=== PATIENT | female | born 1985 | race Caucasian/White ===

== ENCOUNTER 2022-03-23 15:46 | Outpatient (NON) | payer OTHER, SELFPAY | END 2022-03-23 15:47 | disposition home or self-care (01) | PROVIDERS: PCP Nurse Practitioner Adult Health; Visit Provider Nurse Practitioner | DX: D49.2 Neoplasm of unspecified behavior of bone, soft tissue, and skin (principal) | CPT/HCPCS: 88304; 88305 ==

== ENCOUNTER 2023-07-27 09:17 | Outpatient (CLI) | payer OTHER, SELFPAY ==
--- NOTE | ~2023-07-27 | CT_ITS ---
EXAMINATION: CT diagnostic chest wo con DATE: 07/27/2023 09:39 INDICATION: Chronic cough. Shortness of breath. History of multiple Covid infections. TECHNIQUE: Computed tomography (CT) of the chest was performed without intravenous contrast. Automate d exposure control and iterative reconstruction technique were employed. Exam dose: 531.60 mGy-cm to tisha exam DLP. COMPARISON: None FINDINGS: Bilateral fat-containing foramen of Bochdalek hernias. Calcified right upper lobe pulmonary granuloma and calcified subcarinal lymph nodes, consistent with old pulmonary granulomatous disease. No pulmonary infiltrate or consolidation or pulmonary mass lesion is detected. Normal heart size. No pericardial or pleural effusion. No thoracic aortic aneurysm. No hilar or media stinal mass lesion or lymphadenopathy. Normal morphology of the adrenal glands. Degenerative spurring of the thoracic spine. IMPRESSION: Old pulmonary granulomatous disease Reviewed, dictated and finalized at [facility]. Reviewed, dictated and finalized at [facility].
== END 2023-07-27 09:18 ==
LOC: GOSHIMG 09:18
PROVIDERS: PCP Physician Assistant; Visit Provider Physician Assistant
DX: R05.3 Chronic cough (principal)
CPT/HCPCS: 71250